=== PATIENT | male | born 1970 | race Caucasian/White ===

== ENCOUNTER → 2019-10-17 08:40 | Outpatient (BNVA) | payer BC, SELFPAY | PROVIDERS: Family Provider Nurse Practitioner Family; PCP Nurse Practitioner Family; Visit Provider Nurse Practitioner Psychiatric/Mental Health | DX: F33.2 Major depressive disorder, recurrent severe without psychotic features (principal); Z87.820 Personal history of traumatic brain injury; G47.33 Obstructive sleep apnea (adult) (pediatric); F90.0 Attention-deficit hyperactivity disorder, predominantly inattentive type | CPT/HCPCS: 99213 ==

== ENCOUNTER → 2020-01-10 07:35 | Outpatient (BNVA) | payer BC, SELFPAY | PROVIDERS: Family Provider Nurse Practitioner Family; PCP Nurse Practitioner Family; Visit Provider Nurse Practitioner Psychiatric/Mental Health | DX: F33.2 Major depressive disorder, recurrent severe without psychotic features (principal); F90.0 Attention-deficit hyperactivity disorder, predominantly inattentive type; Z87.820 Personal history of traumatic brain injury; G47.33 Obstructive sleep apnea (adult) (pediatric) | CPT/HCPCS: 99214 ==

== ENCOUNTER → 2020-01-23 14:07 | Outpatient (BNVA) | payer SELFPAY | PROVIDERS: Family Provider Nurse Practitioner Family; PCP Nurse Practitioner Family; Visit Provider Registered Nurse | DX: L02.91 Cutaneous abscess, unspecified (principal) | CPT/HCPCS: 87070; 87077; 87186 ==

== ENCOUNTER → 2020-01-31 07:36 | Outpatient (BNVA) | payer BC, SELFPAY | PROVIDERS: Family Provider Nurse Practitioner Family; PCP Nurse Practitioner Family; Visit Provider Nurse Practitioner Psychiatric/Mental Health | DX: F33.2 Major depressive disorder, recurrent severe without psychotic features (principal); F90.0 Attention-deficit hyperactivity disorder, predominantly inattentive type; Z87.820 Personal history of traumatic brain injury; G47.33 Obstructive sleep apnea (adult) (pediatric) | CPT/HCPCS: 99214 ==

== ENCOUNTER 2020-02-02 14:09 | Outpatient (CLI) | payer OTHER, SELFPAY | END 2020-02-02 14:10 | disposition home or self-care (01) | LOC: WOUND 02-05 13:32 | PROVIDERS: Family Provider Nurse Practitioner Family; PCP Nurse Practitioner Family; Visit Provider Surgery | DX: S81.841A Puncture wound with foreign body, right lower leg, initial encounter (principal); X58.XXXA Exposure to other specified factors, initial encounter | CPT/HCPCS: 10060; 11042; 88305; A6446; G0463; J2001 ==

== ENCOUNTER 2020-02-06 15:15 | Outpatient (CLI) | payer OTHER, SELFPAY | END 2020-02-06 15:16 | disposition home or self-care (01) | LOC: WOUND 15:16 | PROVIDERS: Family Provider Nurse Practitioner Family; PCP Nurse Practitioner Family; Visit Provider Thoracic Surgery (Cardiothoracic Vascular Surgery) | DX: S81.841A Puncture wound with foreign body, right lower leg, initial encounter (principal); X58.XXXA Exposure to other specified factors, initial encounter | CPT/HCPCS: 11042 ==

== ENCOUNTER 2020-02-06 16:34 | Outpatient (CLI) | payer OTHER, SELFPAY ==
--- NOTE | 2020-02-06 | XR_ITS ---
WS: [id number] XR ankle RT min 3V* [id number] REASON FOR EXAM: PAIN, REDNESS, NONHEALING ULCER FINDINGS: Soft tissue deformity is seen over the lateral aspects of the distal fibula soft tissue. There is no destructive changes of the tibia fibula. There is postop changes with a plate across the fibula and 2 screws through the tibia. There is an os tibialis present. XR/XR ankle RT min 3V* [id number] IMPRESSION: Soft tissue ulcerated appearing area along the lateral aspects of the distal fi bula. Internal fixation of tibia and fibula fracture satisfactory.
== END 2020-02-06 16:35 | disposition home or self-care (01) ==
PROVIDERS: Family Provider Nurse Practitioner Family; PCP Nurse Practitioner Family; Visit Provider Surgery
DX: M25.571 Pain in right ankle and joints of right foot (principal); L98.499 Non-pressure chronic ulcer of skin of other sites with unspecified severity
CPT/HCPCS: 73610

== ENCOUNTER 2020-02-09 13:31 | Outpatient (CLI) | payer OTHER, SELFPAY | END 2020-02-09 13:32 | disposition home or self-care (01) | LOC: WOUND 13:34 | PROVIDERS: Family Provider Nurse Practitioner Family; PCP Nurse Practitioner Family; Visit Provider Surgery | DX: S81.841A Puncture wound with foreign body, right lower leg, initial encounter (principal); X58.XXXA Exposure to other specified factors, initial encounter | CPT/HCPCS: 11042 ==

== ENCOUNTER 2020-02-16 13:53 | Outpatient (CLI) | payer OTHER, SELFPAY | END 2020-02-16 13:54 | disposition home or self-care (01) | LOC: WOUND 13:54 | PROVIDERS: Family Provider Nurse Practitioner Family; PCP Nurse Practitioner Family; Visit Provider Surgery | DX: S81.841A Puncture wound with foreign body, right lower leg, initial encounter (principal); X58.XXXA Exposure to other specified factors, initial encounter | CPT/HCPCS: 11043; 97605 ==

== ENCOUNTER 2020-02-20 15:33 | Outpatient (CLI) | payer OTHER, SELFPAY | END 2020-02-20 15:34 | disposition home or self-care (01) | LOC: WOUND 15:34 | PROVIDERS: Family Provider Nurse Practitioner Family; PCP Nurse Practitioner Family; Visit Provider Thoracic Surgery (Cardiothoracic Vascular Surgery) | DX: Z51.89 Encounter for other specified aftercare (principal) | CPT/HCPCS: 97605 ==

== ENCOUNTER 2020-02-23 08:02 | Outpatient (CLI) | payer OTHER, SELFPAY | END 2020-02-23 08:03 | disposition home or self-care (01) | LOC: WOUND 08:02 | PROVIDERS: Family Provider Nurse Practitioner Family; PCP Nurse Practitioner Family; Visit Provider Surgery | DX: S81.801A Unspecified open wound, right lower leg, initial encounter (principal); X58.XXXA Exposure to other specified factors, initial encounter | CPT/HCPCS: 11042 ==

== ENCOUNTER → 2020-03-05 07:58 | Outpatient (BNVA) | payer OTHER, SELFPAY | PROVIDERS: Family Provider Nurse Practitioner Family; PCP Nurse Practitioner Family; Visit Provider Nurse Practitioner Psychiatric/Mental Health | DX: F33.2 Major depressive disorder, recurrent severe without psychotic features (principal); F90.0 Attention-deficit hyperactivity disorder, predominantly inattentive type; G47.33 Obstructive sleep apnea (adult) (pediatric); Z87.820 Personal history of traumatic brain injury | CPT/HCPCS: 99214 ==

== ENCOUNTER 2020-03-08 08:19 | Outpatient (CLI) | payer OTHER, SELFPAY | END 2020-03-08 08:20 | disposition home or self-care (01) | LOC: WOUND 08:20 | PROVIDERS: Family Provider Nurse Practitioner Family; PCP Nurse Practitioner Family; Visit Provider Surgery | DX: S81.841A Puncture wound with foreign body, right lower leg, initial encounter (principal); X58.XXXA Exposure to other specified factors, initial encounter | CPT/HCPCS: 11042 ==

== ENCOUNTER 2020-03-11 15:38 | Outpatient (CLI) | payer OTHER, SELFPAY | END 2020-03-11 15:39 | disposition home or self-care (01) | LOC: WOUND 15:39 | PROVIDERS: Family Provider Nurse Practitioner Family; PCP Nurse Practitioner Family; Visit Provider Nurse Practitioner Family | DX: S81.841A Puncture wound with foreign body, right lower leg, initial encounter (principal); X58.XXXA Exposure to other specified factors, initial encounter | CPT/HCPCS: 11042 ==

== ENCOUNTER 2020-03-18 13:52 | Outpatient (CLI) | payer OTHER, SELFPAY | END 2020-03-18 13:53 | disposition home or self-care (01) | LOC: WOUND 13:58 | PROVIDERS: Family Provider Nurse Practitioner Family; PCP Nurse Practitioner Family; Visit Provider Nurse Practitioner Family | DX: S81.841A Puncture wound with foreign body, right lower leg, initial encounter (principal); X58.XXXA Exposure to other specified factors, initial encounter | CPT/HCPCS: 11042 ==

== ENCOUNTER 2020-03-25 13:24 | Outpatient (CLI) | payer OTHER, SELFPAY | END 2020-03-25 13:25 | disposition home or self-care (01) | LOC: WOUND 13:29 | PROVIDERS: Family Provider Nurse Practitioner Family; PCP Nurse Practitioner Family; Visit Provider Nurse Practitioner Family | DX: S81.841A Puncture wound with foreign body, right lower leg, initial encounter (principal); X58.XXXA Exposure to other specified factors, initial encounter | CPT/HCPCS: 11042 ==

== ENCOUNTER 2020-04-01 13:57 | Outpatient (CLI) | payer OTHER, SELFPAY | END 2020-04-01 13:58 | disposition home or self-care (01) | PROVIDERS: Family Provider Nurse Practitioner Family; PCP Nurse Practitioner Family; Visit Provider Nurse Practitioner Family | DX: S81.841A Puncture wound with foreign body, right lower leg, initial encounter (principal); X58.XXXA Exposure to other specified factors, initial encounter | CPT/HCPCS: 11042 ==

== ENCOUNTER 2020-04-22 09:48 | Outpatient (CLI) | payer OTHER, SELFPAY | END 2020-04-22 09:49 | disposition home or self-care (01) | LOC: WOUND 09:50 | PROVIDERS: Family Provider Nurse Practitioner Family; PCP Nurse Practitioner Family; Visit Provider Emergency Medicine | DX: S81.841A Puncture wound with foreign body, right lower leg, initial encounter (principal); X58.XXXA Exposure to other specified factors, initial encounter | CPT/HCPCS: 11042 ==

== ENCOUNTER 2020-04-29 10:13 | Outpatient (CLI) | payer OTHER, SELFPAY | END 2020-04-29 10:14 | disposition home or self-care (01) | LOC: WOUND 10:15 | PROVIDERS: Family Provider Nurse Practitioner Family; PCP Nurse Practitioner Family; Visit Provider Emergency Medicine | DX: L97.812 Non-pressure chronic ulcer of other part of right lower leg with fat layer exposed (principal) | CPT/HCPCS: 11042; 87070; 87077; 87176; 87186; 87205 ==

== ENCOUNTER 2020-05-13 08:08 | Outpatient (CLI) | payer OTHER, SELFPAY | END 2020-05-13 08:09 | disposition home or self-care (01) | LOC: WOUND 08:08 | PROVIDERS: Family Provider Nurse Practitioner Family; PCP Nurse Practitioner Family; Visit Provider Emergency Medicine | DX: L97.812 Non-pressure chronic ulcer of other part of right lower leg with fat layer exposed (principal) | CPT/HCPCS: 97597 ==

== ENCOUNTER 2020-05-20 08:09 | Outpatient (CLI) | payer OTHER, SELFPAY | END 2020-05-20 08:10 | disposition home or self-care (01) | LOC: WOUND 08:10 | PROVIDERS: Family Provider Nurse Practitioner Family; PCP Nurse Practitioner Family; Visit Provider Nurse Practitioner Family | DX: L97.812 Non-pressure chronic ulcer of other part of right lower leg with fat layer exposed (principal) | CPT/HCPCS: 11042; 87070; 87077; 87176; 87186; 87205 ==

== ENCOUNTER 2020-05-27 08:21 | Outpatient (CLI) | payer OTHER, SELFPAY | END 2020-05-27 08:22 | disposition home or self-care (01) | LOC: WOUND 08:21 | PROVIDERS: Family Provider Nurse Practitioner Family; PCP Nurse Practitioner Family; Visit Provider Nurse Practitioner Family | DX: L97.812 Non-pressure chronic ulcer of other part of right lower leg with fat layer exposed (principal) | CPT/HCPCS: 99212 ==

== ENCOUNTER 2020-06-03 13:58 | Outpatient (CLI) | payer OTHER, SELFPAY ==
--- NOTE | 2020-06-03 14:15 | USCV_ITS ---
JessicaSharad rogers Age: 49 Gender: M : 1970 Exam Date: 06/03/2020 14:13 Ordering Phys: Diann Myers Technologist: Jessica Rivera [place] [facility] [place]: HISTORY: pain swelling, non healing ulcer right calf PROCEDURES: Bilateral duplex Venous Insufficiency study of the Deep and Superficial systems was carried out according to normal protocol with the patient in supine positon for deep system and dependent position for the superficial system. FINDINGS: No DVT or superficial thrombus seen in right or left leg No reflux found in right or left leg Vessel diameters and depths noted above. CONCLUSIONS No evidence of DVT in the above-mentioned identifiable veins. No significant venous reflux bilaterally. Normal caliber veins bilaterally Dr Mark Jaramillo MD [facility] (Electronically Signed) Final Date: 03 June 2020 19:34 S
== END 2020-06-03 13:59 | disposition home or self-care (01) ==
PROVIDERS: PCP Registered Nurse; Visit Provider Nurse Practitioner Family
DX: M79.604 Pain in right leg (principal); M79.605 Pain in left leg; L53.9 Erythematous condition, unspecified; L97.219 Non-pressure chronic ulcer of right calf with unspecified severity
CPT/HCPCS: 93970

== ENCOUNTER 2020-06-05 15:10 | Outpatient (CLI) | payer OTHER, SELFPAY ==
--- NOTE | 2020-06-05 15:14 | USCV_ITS ---
Sharad Hubbard Age: 49 Gender: M : 1970 Exam Date: 06/05/2020 15:05 Ordering Phys: Diann Myers Technologist: Flores Carter [place] [facility] [place]: PAIN REDNESS NONHEALING ULCER RIGHT LEFT Brachial 163.00 mmHg Brachial 176.00 mmHg Pressure (mmHg) Waveform Pressure (mmHg) Waveform 169.00 Above Knee 172.00 188.00 Below Knee 183.00 196.00 BED LASTER 203.00 177.00 DPA 177.00 1.10 Ankle/Brachial Index 1.15 162.00 Pre-Exercise Toe Pressure 158.00 Pre-Exercise Toe/Brachial Index 0.90 0.92 FINDINGS Normal resting ABIs bilaterally Normal resting TBI's bilaterally PVR waveforms showing loss of dicrotic notch bilaterally CONCLUSIONS No significant arterial obstruction, based on the above findings Some features of arterial noncompliance Dr Mark Jaramillo MD [facility] (Electronically Signed) Final Date: 05 June 2020 23:32 S
== END 2020-06-05 15:11 | disposition home or self-care (01) ==
LOC: US 15:12
PROVIDERS: PCP Registered Nurse; Visit Provider Nurse Practitioner Family
DX: M79.604 Pain in right leg (principal); M79.605 Pain in left leg; L53.9 Erythematous condition, unspecified; L97.929 Non-pressure chronic ulcer of unspecified part of left lower leg with unspecified severity; L97.919 Non-pressure chronic ulcer of unspecified part of right lower leg with unspecified severity
CPT/HCPCS: 93923

== ENCOUNTER 2020-12-23 13:26 | Emergency (ER) | payer OTHER, SELFPAY ==
--- NOTE | 2020-12-23 13:38 | ECG_ITS ---
[facility] Test Date: 2020-12-23 Pat Name: Sharad Hubbard Department: Room: Gender: Male Cardiology Technician: : 1970 Requested By: Yaneli Neri Order Number: [id number] Aline MD: Ailyn Churchill M.D. Measurements Intervals [place] Rate: 67 P: 55 DE: 203 QRS: 56 QRSD: 100 T: 14 QT: 383 QTc: 406 Interpretive Statements SINUS RHYTHM NONSPECIFIC T-WAVE ABNORMALITY Compared to ECG 12/23/2020 15:32:51 Intraventricular conduction delay no longer present Possible ischemia no longer present T-wave abnormality still present Electronically Signed On 12-23-2020 19:12:45 CDT by Ailyn Churchill M.D. [id number] f
--- NOTE | 2020-12-23 13:38 | XR_ITS ---
WS: [id number] Exam: XR chest 1V portable [id number] Date/Time of Exam: 12/23/2020 1:40 PM Reason For Exam: chest pain Comparison 08/10/2017. The lungs are clear and fully inflated. No pleural effusions. Normal cardiomediastinal structures for technique. Regional bony elements are intact. XR/XR chest 1V portable [id number] IMPRESSION: 1. No acute cardiopulmonary finding. No change.
[2020-12-23 14:01] VITALS: BP 171/107; PULSE 78; RESP 14; TEMP 37; O2SAT 98; BMI 51.9
[2020-12-23 14:34] LABS: Basophils % 0.3 %; Eosinophils # 0.1 10^3/uL (0.0-0.8); Eosinophils % 0.9 %; Hematocrit 45.9 % (42.0-52.0); Hemoglobin 15.3 g/dL (11.7-16.6); Lymphocytes # 1.9 10^3/uL (0.8-4.8); Lymphocytes % 21.5 %; Mean Corpuscular HGB Conc 33.3 g/dL (30.0-36.0); Mean Corpuscular Hemoglobin 29.8 pg (28.0-34.0); Mean Corpuscular Volume 89.3 fL (80-94); Mean Platelet Volume 10.1 fL (7.4-10.4); Monocytes % 11.5 %; Neutrophils # 5.67 10^3/uL (1.8-7.7); Neutrophils % 65.6 %; Nucleated Red Blood Cells % 0 %; Platelet Count 223 10^3/cmm (130-400); Red Blood Count 5.14 10^6/uL (4.1-5.3); Red Cell Distribution Width 12.8 % (12.1-15.1); White Blood Count 8.7 10^3/uL (4.0-10.0)
[2020-12-23 14:39] VITALS: PULSE 73; RESP 16; O2SAT 98
--- NOTE | 2020-12-23 14:41 | ED_ITS ---
HPI - Chest Pain General: Chief Complaint: Chest Pain Stated Complaint: CHEST PAINS Time Seen by Provider: 12/23/20 14:12 History of Present Illness: HPI narrative: 50-year-old male presents emergency room with complaint of chest discomfort. Had this for the last 2 days. He has had it intermittently for several years he states he has had stress test before in the past including one recently here. Looks to the old records in August 2016 he had a sestamibi stress test that was normal he also had a inadvertently discovered nodule in the chest that was worked up by Dr. Almaguer and he tells me you follow-up to review negative. Patient is not diabetic he has no known heart disease he does is a history of hypertension. MD complaint: chest pain Onset (ago): day(s) (2) Timing of current episode: episodic Prior episodes: Yes Onset: during rest and during exertion Pain location: substernal and left chest Pain radiation: none Severity: moderate Quality: heaviness Relieving factors: nothing Exacerbating factors: nothing Associated symptoms: Deny abdominal pain, diaphoresis, dyspnea, fever(s), leg edema, nausea, palpitations, sense of impending doom, syncope or vomiting Treatment prior to arrival: none Review of Systems Const: Denies: fever(s) or diaphoresis ENMT: Denies: throat pain, ear or mastoid pain, nasal discharge or nasal congestion Card: Denies: palpitations or syncope Resp: Denies: dyspnea GI: Denies: abdominal pain, nausea or vomiting : Denies: flank pain, dysuria, urinary frequency or urinary urgency Skin/Breast: Denies: rash or pruritus PFSH ED PFSH: Medical History ADHD (attention deficit hyperactivity disorder), inattentive type COVID-19 H/O concussion Traumatic brain injury Major depressive disorder, recurrent severe without psychotic features Obstructive sleep apnea Social History Smoking and tobacco status: former smoker Alcohol intake: never Adopted: No Caregiver/support person: No Lives independently: No Household members: spouse and children Current occupational status: employed Sexually active: Yes Current gender identity: Male Physical Exam Const: COMMON NORMALS: no acute distress GENERAL APPEARANCE: cooperative and comfortable ORIENTATION/CONSCIOUSNESS: Yes awake, Yes oriented to person, Yes oriented to place and Yes oriented to time HENMT: COMMON NORMALS: normocephalic, atraumatic and hearing grossly normal bilaterally HEAD & SCALP: normocephalic and atraumatic Neck/C-Spine: COMMON NORMALS: no JVD Resp: COMMON NORMALS: normal respiratory effort, No retractions, No use of accessory muscles and clear to auscultation bilaterally AUSCULTATION: clear to auscultation bilaterally Cardio: COMMON NORMALS: no JVD, regular rate, regular rhythm and No murmurs present (Cardio) RATE: regular rate RHYTHM: regular rhythm GI: COMMON NORMALS: Soft to palpation and No hepatosplenomegaly present AUSCULTATION: Yes normoactive bowel sounds PALPATION: Yes Soft to palpation, No Tenderness to palpation present (GI), No Guarding due to palpation present (GI) and Yes No hepatosplenomegaly present Extremity: COMMON NORMALS: normal to inspection, capillary refill normal, no clubbing, cyanosis or edema, no calf tenderness and no pedal edema Neuro: SENSORIUM/ORIENTATION: Yes oriented to person, Yes oriented to place and Yes oriented to time Skin: COMMON NORMALS: no rashes or lesions noted GENERAL SKIN EXAM: no rashes or lesions noted Course Vital Signs: Vital signs: Vital Signs Temperature 98.6 F 12/23/20 14:01 Pulse Rate 76 12/23/20 17:18 Respiratory Rate 18 12/23/20 17:18 Blood Pressure 141/81 12/23/20 17:18 Pulse Oximetry 97 12/23/20 17:18 MDM - Chest Pain MDM Narrative: Medical decision making narrative: Enzymes negative discharge home set up outpatient stress test started on aspirin daily also started metoprolol continue propranolol Lab Data: Labs: Lab Results 12/23/20 12/23/20 12/23/20 Range/Units 14:22 14:22 14:22 WBC 8.7 (4.0-10.0) 10^3/ uL RBC 5.14 (4.1-5.3) 10^6/u L Hgb 15.3 (11.7-16.6) g/dL Hct 45.9 (42.0-52.0) % MCV 89.3 (80-94) fL MCH 29.8 (28.0-34.0) pg MCHC 33.3 (30.0-36.0) g/dL RDW 12.8 (12.1-15.1) % Plt Count 223 (130-400) 10^3/c mm MPV 10.1 (7.4-10.4) fL Neut % (Auto) 65.6 % Lymph % (Auto) 21.5 % [place] % (Auto) 11.5 % Eos % (Auto) 0.9 % Baso % (Auto) 0.3 % Neut # (Auto) 5.67 (1.8-7.7) 10^3/u L Lymph # (Auto) 1.9 (0.8-4.8) 10^3/u L [place] # (Auto) 1.0 H (0.2-0.9) 10^3/u L Eos # (Auto) 0.1 (0.0-0.8) 10^3/u L Baso # (Auto) 0.0 (0.0-0.1) 10^3/u L Nucleated RBC % (a uto) 0 % Nucleated RBCs # 0.0 /100WBC Sodium 136 (136-145) mmol/L Potassium 4.3 (3.5-5.1) mmol/L Chloride 100 (98-107) mmol/L Carbon Dioxide 24 (22-29) mmol/L Anion Gap 16.3 (5-19) BUN 16 (6-20) mg/dL Creatinine 0.7 (0.7-1.2) mg/dL GFR Calculation 118.9 (90-130) mL/min Glucose 92 (65-115) mg/dL Calculated Osmolal ity Not Reportable Calcium 9.1 (8.5-10.5) mg/dL Total Bilirubin 0.3 (0.15-1.2) mg/dL AST 18 (0-40) U/L ALT 19 (0-41) U/L Alkaline Phosphata se 87 (40-130) IU/L Troponin T Baselin e 6 (0-15) ng/L Troponin T 120 Min scott (0-15) ng/L Delta Troponin T (0-10) ABS# Total Protein 7.3 (6.6-8.7) g/dL Albumin 4.0 (3.5-5.2) g/dL Globulin 3.3 (1.3-4.6) g/dL 12/23/20 Range/Units 16:28 WBC (4.0-10.0) 10^3/ uL RBC (4.1-5.3) 10^6/u L Hgb (11.7-16.6) g/dL Hct (42.0-52.0) % MCV (80-94) fL MCH (28.0-34.0) pg MCHC (30.0-36.0) g/dL RDW (12.1-15.1) % Plt Count (130-400) 10^3/c mm MPV (7.4-10.4) fL Neut % (Auto) % Lymph % (Auto) % [place] % (Auto) % Eos % (Auto) % Baso % (Auto) % Neut # (Auto) (1.8-7.7) 10^3/u L Lymph # (Auto) (0.8-4.8) 10^3/u L [place] # (Auto) (0.2-0.9) 10^3/u L Eos # (Auto) (0.0-0.8) 10^3/u L Baso # (Auto) (0.0-0.1) 10^3/u L Nucleated RBC % (a uto) % Nucleated RBCs # /100WBC Sodium (136-145) mmol/L Potassium (3.5-5.1) mmol/L Chloride (98-107) mmol/L Carbon Dioxide (22-29) mmol/L Anion Gap (5-19) BUN (6-20) mg/dL Creatinine (0.7-1.2) mg/dL GFR Calculation (90-130) mL/min Glucose (65-115) mg/dL Calculated Osmolal ity Calcium (8.5-10.5) mg/dL Total Bilirubin (0.15-1.2) mg/dL AST (0-40) U/L ALT (0-41) U/L Alkaline Phosphata se (40-130) IU/L Troponin T Baselin e (0-15) ng/L Troponin T 120 Min scott 6.84 (0-15) ng/L Delta Troponin T 0.84 (0-10) ABS# Total Protein (6.6-8.7) g/dL Albumin (3.5-5.2) g/dL Globulin (1.3-4.6) g/dL Discharge Plan Discharge Patient Disposition: Home Clinical Impression: Atypical chest pain, Gastroesophageal reflux disease Condition: Stable Prescriptions: New aspirin 81 mg tablet,delayed release (DR/EC) 81 mg PO DAILY Qty: 30 RF: 0 pantoprazole 40 mg tablet,delayed release (DR/EC) 40 mg PO QAM 56 Days Qty: 56 RF: 0 No Action propranolol 20 mg tablet 20 mg PO BID RF: 0 Discharge Orders: Discharge ED (Routine); Ordered 12/23/20 Ordered By: Addi Villafana Referrals: Danilo Mead, INTERNATIONAL BANK MANAGER [Primary Care Provider] - Discharge Diet: As Directed Discharge Activity: Resume usual activity Patient Instructions: Opioid Safety Activity Restrictions/Additional Instructions: Case management will call to arrange for a Lexiscan sestamibi stress test. Coding Level of Care Code ED Truck Spotter for Erick Coe
[2020-12-23] MEDS: amlodipine 5 mg Tablet PO (14:49)
--- NOTE | 2020-12-23 14:55 | PC.NURSE ---
patient family stated that lisinopril cause pt chronic cough, MD notified.
[2020-12-23 14:59] LABS: Alanine Aminotransferase 19 U/L (0-41); Alkaline Phosphatase 87 IU/L (40-130); Aspartate Amino Transferase 18 U/L (0-40); Blood Urea Nitrogen 16 mg/dL (6-20); Calcium 9.1 mg/dL (8.5-10.5); Carbon Dioxide 24 mmol/L (22-29); Chloride 100 mmol/L (98-107); Globulin 3.3 g/dL (1.3-4.6); Glomerular Filtration Rate 118.9 mL/min (90-130); Glucose 92 mg/dL (65-115); Sodium 136 mmol/L (136-145); Total Bilirubin 0.3 mg/dL (0.15-1.2); Total Protein 7.3 g/dL (6.6-8.7)
[2020-12-23 15:00] LABS: Anion Gap 16.3 (5-19); Potassium 4.3 mmol/L (3.5-5.1); Troponin(5th) Baseline 6 ng/L (0-15)
[2020-12-23] MEDS: losartan 50 mg Tablet 100 MG PO (15:30)
--- NOTE | 2020-12-23 15:31 | PC.NURSE ---
patient stated chest pain comes and goes, c/o chest pain 5/10, no acute distress noted at this time.
--- NOTE | 2020-12-23 15:38 | ECG_ITS ---
[facility] Test Date: 2020-12-23 Pat Name: Sharad Hubbard Department: Room: Gender: Male Certification Officer: : 1970 Requested By: Yaneli Neri Order Number: [id number] Aline MD: Ailyn Churchill M.D. Measurements Intervals [place] Rate: 69 P: 54 PA: 201 QRS: 56 QRSD: 109 T: -11 QT: 393 QTc: 423 Interpretive Statements SINUS RHYTHM MODERATE INTRAVENTRICULAR CONDUCTION DELAY [105+ ms QRS DURATION, 80+ ms Q/S IN V1/V2, NO Q AND 60+ ms R IN I/aVL/V5/V6] MODERATE T-WAVE ABNORMALITY, CONSIDER ANTERIOR ISCHEMIA [-0.1+ mV T WAVE IN V3/V4] Compared to ECG 08/10/2017 20:00:20 Intraventricular conduction delay now present T-wave abnormality now present Possible ischemia now present Sinus bradycardia no longer present First degree AV block no longer present Electronically Signed On 12-23-2020 19:17:19 CDT by Ailyn Churchill M.D. [id number]
[2020-12-23 16:40] VITALS: BP 140/102; PULSE 78; RESP 18; O2SAT 98
[2020-12-23 17:15] LABS: Troponin 5 2HR 6.84 ng/L (0-15); Troponin 5 2HR Delta 0.84 ABS# (0-10)
[2020-12-23 17:18] VITALS: BP 141/81; PULSE 76; RESP 18; O2SAT 97
[2020-12-23] MEDS: lidocaine 2% viscous 15 ML, aluminum-mag hydrox-simethicon 30 ML, sucralfate oral liq 1 GM PO (17:41)
--- NOTE | 2020-12-24 11:01 | DCPLANNER ---
manager business had message to schedule an outpatient stress test for patient. manager business faxed signed order to centralized scheduling, will call for appointment information.
--- NOTE | 2021-01-03 13:29 | DCPLANNER ---
manager molecular was contacted by centralize scheduling, and the insurance company is requiring a peer to peer for the stress test, this is not done in the ER. manager molecular called patient, unable to speak with patient at this time, a voicemail was left for patient. manager molecular left a voicemail for patient stating that the stress test could not be ordered from the ER, that a peer to peer was required and that is not done in the ER. manager molecular explained that this is getting more common with insurances and tests out of the ER. Patient will need to see his primary care physician and if they feel patient needs the testing than the primary care physician can order if for patient.
== END 2020-12-23 17:59 | disposition home or self-care (01) ==
PROVIDERS: Physician Assistant; Emergency Provider Family Medicine; PCP Registered Nurse
DX: R07.89 Other chest pain (principal); K21.9 Gastro-esophageal reflux disease without esophagitis; Z87.891 Personal history of nicotine dependence
CPT/HCPCS: 71045; 80053; 84484; 85025; 93005; 99284

== ENCOUNTER → 2021-01-07 08:02 | Outpatient (BNVA) | payer OTHER, SELFPAY | PROVIDERS: PCP Registered Nurse; Visit Provider Nurse Practitioner Psychiatric/Mental Health | DX: F33.2 Major depressive disorder, recurrent severe without psychotic features (principal); F90.0 Attention-deficit hyperactivity disorder, predominantly inattentive type; Z87.820 Personal history of traumatic brain injury; G47.33 Obstructive sleep apnea (adult) (pediatric) | CPT/HCPCS: 99214 ==

== ENCOUNTER → 2021-02-05 08:20 | Outpatient (BNVA) | payer OTHER, SELFPAY | PROVIDERS: PCP Registered Nurse; Visit Provider Nurse Practitioner Psychiatric/Mental Health | DX: F33.2 Major depressive disorder, recurrent severe without psychotic features (principal); Z87.820 Personal history of traumatic brain injury; G47.33 Obstructive sleep apnea (adult) (pediatric); F90.0 Attention-deficit hyperactivity disorder, predominantly inattentive type | CPT/HCPCS: 99214 ==

== ENCOUNTER → 2021-04-08 09:34 | Outpatient (BNVA) | payer OTHER, SELFPAY | PROVIDERS: PCP Registered Nurse; Visit Provider Registered Nurse | DX: Z12.5 Encounter for screening for malignant neoplasm of prostate (principal); I10 Essential (primary) hypertension; E78.5 Hyperlipidemia, unspecified | CPT/HCPCS: 80053; 80061; 85025; G0103 ==

== ENCOUNTER 2021-07-28 09:18 | Outpatient (CLI) | payer OTHER, SELFPAY ==
--- NOTE | 2021-07-28 09:27 | XR_ITS ---
WS: [id number] Exam: XR shoulder RT min 2V* [id number] Date/Time of Exam: 07/28/2021 9:27 AM Reason For Exam: [id number] - Pain in right shoulder No fracture or dislocation noted. Mild spurring along the inferior margin of the distal clavicle. Nor mal soft tissues. XR/XR shoulder RT min 2V* [id number] IMPRESSION: 1. No fracture or dislocation. 2. Small bone spur seen along the inferior margin of the distal clavicle.
[2021-07-31 14:43] LABS: Vit D 1,25 (Oh)2, Total 44 pg/mL (18-72); Vit D2 1,25 (Oh)2 <8 pg/mL; Vit D3 1,25 (Oh)2 44 pg/mL
[2021-08-01 18:27] LABS: TSH Receptor Binding Antibody 1.16 IU/L (< OR = 2.00)
== END 2021-07-28 09:19 | disposition home or self-care (01) ==
LOC: RAD 09:23
PROVIDERS: PCP Registered Nurse; Visit Provider Registered Nurse
DX: M25.511 Pain in right shoulder (principal); I10 Essential (primary) hypertension; R41.3 Other amnesia; M77.8 Other enthesopathies, not elsewhere classified
CPT/HCPCS: 36415; 73030; 82652; 83516

== ENCOUNTER 2021-09-22 07:18 | Outpatient (RCR) | payer OTHER, SELFPAY | END 2021-10-03 23:59 | disposition home or self-care (01) | LOC: SPT 07:18 | PROVIDERS: PCP Registered Nurse; Referring Provider Registered Nurse; Visit Provider Registered Nurse | DX: M75.41 Impingement syndrome of right shoulder (principal) | CPT/HCPCS: 97110; 97161 ==

== ENCOUNTER 2021-10-04 06:00 | Outpatient (RCR) | payer OTHER, SELFPAY | END 2021-11-03 23:59 | disposition home or self-care (01) | LOC: SPT 06:00 | PROVIDERS: PCP Registered Nurse; Visit Provider Registered Nurse | DX: M75.41 Impingement syndrome of right shoulder (principal) | CPT/HCPCS: 97110 ==

== ENCOUNTER 2021-11-04 06:00 | Outpatient (RCR) | payer OTHER, SELFPAY | END 2021-12-01 23:59 | disposition home or self-care (01) | LOC: SPT 06:00 | PROVIDERS: PCP Registered Nurse; Visit Provider Registered Nurse | DX: M75.41 Impingement syndrome of right shoulder (principal) | CPT/HCPCS: 97110 ==

== ENCOUNTER 2021-11-12 07:09 | Day surgery (SDC) | payer OTHER, SELFPAY ==
[2021-11-08 17:07] LABS: Quest SARS-CoV-2 RNA NOT DETECTED (NOT DETECTED)
[2021-11-10 09:43] VITALS: BMI 51.5
--- NOTE | 2021-11-12 07:31 | P.ANESASSM_ITS ---
Pre-Anesthetic Assessment Height/Weight: Height 1.83 m Weight 172.365 kg Preop Diagnosis: diagnostic Operation Date: 11/12/21 08:30 Proposed Procedures p Colonoscopy 72320 Z12.11(Not Applicable) - Buck Warren MD Familial anesthetic complications: None, he has h/o difficult intubation Was Beta Fauzia taken within 24 hours: N/A Was Clonidine taken within 24 hours: N/A Social No alcohol and No tobacco Exam alert, oriented x 3, clear to auscultation bilaterally and regular rate & rhythm Airway Submandibular: within normal limits Cervical ROM: within normal limits Mallampati: Class IV Dentition: full Pulmonary Sleep Apnea CV/HEM Hypertension Metabolic Morbid Obesity Neuropsych Anxiety and Depression Anesthetic Plan ASA status: 3 Anesthesia: MAC Risk of > 500 ml blood loss (7ml/kg in children): No Medications/Allergies Home Medications Medication Instructions Recorded Confirmed Last Taken Type olanzapine 5 mg disintegrating 5 mg PO DAILY PRN #30 tab 02/05/21 11/10/21 Unknown Rx tablet (Zyprexa Zydis) lisinopril 10 mg tablet 10 mg PO DAILY #30 tab 09/16/21 11/10/21 Unknown Rx Allergies Allergy/AdvReac Type Severity Reaction Status Date / Time No Known Allergies Allergy Verified 11/10/21 09:41 [facility], [facility] Anesthesia Medical History ADHD (attention deficit hyperactivity disorder), inattentive type COVID-19 H/O concussion Traumatic brain injury Major depressive disorder, recurrent severe without psychotic features Obstructive sleep apnea Social History Alcohol intake: never Adopted: No Caregiver/support person: No Lives independently: No Household members: spouse and children Current occupational status: employed Sexually active: Yes Current gender identity: Male Data Anesthesia Cardiac Studies: No Data to Display
[2021-11-12 07:38] VITALS: BP 147/93; PULSE 87; RESP 18; TEMP 36.5; O2SAT 95
[2021-11-12] MEDS: sodium chloride 0.9% 1,000 ML 30 ML IV (07:54)
--- NOTE | 2021-11-12 08:35 | W.PM.OPSFHP ---
Same Day Surgery H&P Indication for Procedure/HPI DATE OF PROCEDURE: November 12, 2021 CHIEF COMPLAINT/INDICATIONFOR SURGICAL PROCEDURE: screening PREOP DIAGNOSIS: diagnostic PLANNED PROCEDURE: Operation Date: 11/12/21 08:30 Proposed Procedures p Colonoscopy 78708 Z12.11(Not Applicable) - Buck Warren MD Medications/Allergies* Home Medications Medication Instructions Recorded Confirmed Type fluoxetine 20 mg capsule 20 mg PO DAILY 11/12/21 11/12/21 History propranolol 10 mg tablet 10 mg PO DAILY 11/12/21 11/12/21 History Allergies/Adverse Reactions Allergy/AdvReac Type Severity Reaction Status Date / Time No Known Allergies Allergy Verified 11/12/21 07:45 Current Medications: Generic Name Dose Route Start Last Admin Trade Name Freq PRN Reason Stop Dose Admin Sodium Chloride 1,000 mls @ 30 mls/hr 11/12/21 07:30 11/12/21 07:54 Sodium Chloride 0.9% IV 11/13/21 07:29 30 mls/hr .Q24H MELI Administration Pertinent History/Comorbid Conditions* Medical History (Updated 11/12/21 @ 07:33 by Heriberto Douglas) ADHD (attention deficit hyperactivity disorder), inattentive type COVID-19 Difficult airway for intubation H/O concussion Traumatic brain injury Major depressive disorder, recurrent severe without psychotic features Obstructive sleep apnea Social History Alcohol intake: never Adopted: No Caregiver/support person: No Lives independently: No Household members: spouse and children Current occupational status: employed Sexually active: Yes Current gender identity: Male Pertinent Exam Findings alert, oriented x 3 and regular rate & rhythm Recommendations Surgery/Procedure today Coding Level of Care Code Acute Buildings And Grounds Coordinator for Erick Coe
[2021-11-12 08:58] VITALS: BP 164/92; PULSE 78; RESP 16; TEMP 36.1; O2SAT 95
--- NOTE | 2021-11-12 08:59 | ANE.PACU2 ---
Inpatient post-anesthesia follow up: Airway intact: Yes Vital signs: Temperature 97.7 F Pulse Rate 87 Respiratory Rate 18 Blood Pressure 147/93 Pulse Oximetry 95 Oxygen Delivery Me thod Room Air Oxygen Flow Rate Fraction of Inspir ed Oxygen Hydration adequate: Yes Nausea and vomiting: No Pain level: 1 Mental status: Baseline
[2021-11-12 09:11] VITALS: BP 103/72; PULSE 78; RESP 18; O2SAT 94
== END 2021-11-12 09:26 | disposition home or self-care (01) ==
PROVIDERS: PCP Registered Nurse; Visit Provider Surgery
PROC: 0DJD8ZZ Inspection of Lower Intestinal Tract, Via Natural or Artificial Opening Endoscopic (ICD-10-PCS; CPT 45378; principal; 2021-11-12 08:30)
DX: Z12.11 Encounter for screening for malignant neoplasm of colon (principal); I10 Essential (primary) hypertension; E66.01 Morbid (severe) obesity due to excess calories; Z68.43 Body mass index [BMI] 50.0-59.9, adult; F41.9 Anxiety disorder, unspecified; F32.9 Major depressive disorder, single episode, unspecified; Z86.16 Personal history of COVID-19; G47.33 Obstructive sleep apnea (adult) (pediatric)
CPT/HCPCS: 45378; 87635; J2704; J7030

== ENCOUNTER → 2022-06-01 10:23 | Outpatient (BNVA) | payer OTHER, SELFPAY | PROVIDERS: PCP Registered Nurse; Visit Provider Registered Nurse | DX: I10 Essential (primary) hypertension (principal); E78.5 Hyperlipidemia, unspecified; G47.33 Obstructive sleep apnea (adult) (pediatric); R07.9 Chest pain, unspecified; E66.01 Morbid (severe) obesity due to excess calories; Z68.43 Body mass index [BMI] 50.0-59.9, adult; Z91.14 Patient's other noncompliance with medication regimen | CPT/HCPCS: 80053; 80061; 85025 ==

== ENCOUNTER → 2022-08-07 08:15 | Outpatient (BNVA) | payer OTHER, SELFPAY | PROVIDERS: PCP Registered Nurse; Visit Provider Podiatrist Foot & Ankle Surgery | DX: M76.62 Achilles tendinitis, left leg (principal); M92.62 Juvenile osteochondrosis of tarsus, left ankle; M24.572 Contracture, left ankle | CPT/HCPCS: 73630 ==

== ENCOUNTER 2022-08-07 08:53 | Outpatient (CLI) | payer OTHER, SELFPAY | END 2022-08-07 08:54 | disposition home or self-care (01) | LOC: SPT 08:54 | PROVIDERS: PCP Registered Nurse; Visit Provider Podiatrist Foot & Ankle Surgery | DX: Z46.89 Encounter for fitting and adjustment of other specified devices (principal); M79.672 Pain in left foot | CPT/HCPCS: 97760; L4397 ==

== ENCOUNTER 2022-10-06 09:33 | Outpatient (CLI) | payer OTHER, SELFPAY ==
[2022-10-06 09:48] VITALS: BMI 52.2
--- NOTE | 2022-10-06 09:49 | ECG_ITS ---
[facility] Test Date: 2022-10-06 Pat Name: Sharad Hubbard Department: Room: Gender: Male Stucco Laborer: Norma Wheat : 1970 Requested By: Ailyn Churchill Order Number: [id number] Aline MD: Ailyn Churchill M.D. Interpretive Statements NAME OF STUDY: LEXISCAN SESTAMIBI STRESS TEST INDICATION: Chest Pain PROCEDURE: At the baseline, the blood pressure was 154/98 mm Hg with a heart rate of 72 bpm. The electrocardiogram showed sinus rhythm, normal axis and LBBB. ??? The Lexiscan was infused over a period of 20 seconds. A total of 0.4 milligrams of Lexiscan was infused. The stress phase was continued for a total of 5 minutes. Heart rate at the end of the stress phase was 83 bpm with a blood pressure of 142/97 mm Hg. The EKG at the peak infusion revealed so significant ST-T wave changes. ??? Sestamibi was injected 20 seconds after the Lexiscan infusion. ??? Blood pressure at the end of the recovery phase was 136/95 mm Hg with a heart rate of 80 beats per minute. ??? CONCLUSION: 1. Non diagnostic EKG changes with the LexiScan infusion due to baseline LBBB. 2. No LexiScan induced chest pain or cardiac arrhythmia. 3. Normal blood pressure and heart rate response. 4. Sestamibi/sestamibi perfusion scan pending; see separate report. Electronically Signed On 10-08-2022 6:26:28 [employer] by Ailyn Churchill M.D. [id number]
--- NOTE | 2022-10-06 09:49 | NMCV_ITS ---
NM nam perf SPECT r/s* [id number] Sharad Hubbard Age: 52 Gender: M : 1970 Exam Date: 10/06/2022 10:57 Ordering Phys: Ailyn Churchill MD [email or web address]) Technologist: HUNG Hopkins Exam Location: [facility] Indications: CHEST PAIN STRESS TEST Please see separate stress test report in [facility] for full findings IMAGE PROTOCOL Rest/Stress 1 Lexiscan Day Radiopharmaceutical Dose (mCi) Administration Site Administered by Rest: Tc-99m 10.5 IV HUNG Serrano Sestamibi Stress:Tc-99m 33.0 IV HUNG Serrano Sestamibi Rest: 06-Oct-2022 60 Discovery 630 Stress: 06-Oct-2022 30 Discovery 630 0.4mg Lexiscan. Images obtained in supine and prone position. SPECT RESULTS Technical Quality: Excellent Raw Data Analysis: Normal Image Corrections: No attenuation or motion correction applied Summed Stress Score: 3 Summed Rest Score: 12 Summed Difference Score: 0 PERFUSION FINDINGS Patchy area of decreased tracer uptake in inferior and septal nguyen with improved tracer uptake in stress images. This is suggestive of attenuation artifact. FUNCTIONAL RESULTS (calculated via Gated SPECT) Stress Image LV EF (%): 50 Stress EDV (mL):222 TID: 1.01 Stress ESV (mL):111 FUNCTIONAL FINDINGS: The left ventricle is normal in size. Transient Ischemia Dilatation of 1. The left ventricular ejection fraction is mildly reduced with a value of 50%. Possible mild hypokinesis of inferior wall. Markedly increased end diastolic and end systolic volumes. IMPRESSIONS 1. Small perfusion abnormality of mid to apical inferior may represent attenuation artifact or old myocardial infarction. Attenuation artifact noted on septal nguyen. 2. The left ventricular ejection fraction is mildly reduced with a value of 50%. 3. Possible mild hypokinesis of inferior wall. 4. EKG portion of the study will be reported separately. 5. No coronary ischemia based on this study. Ailyn Churchill MD (Electronically Signed) Final Date: 07 October 2022 10:41 S
--- NOTE | 2022-10-06 10:00 | USCV_ITS ---
Sharad Hubbard Age: 52 Gender: M : 1970 Exam Date: 10/06/2022 10:27 Ordering Phys: Ailyn Churchill MD ([email or web address]) Technologist: Elan Cortez Exam Location[place] [facility] [place] Indication: CHEST PAIN BP: 112 / 75 HR: 78 Rhythm: Sinus Technical Quality: Adequate MEASUREMENTS (Male / Female) Normal Values 2D ECHO LV Diastolic Diameter PLAX 5.3 cm 4.2 - 5.9 / 3.9 - 5.3 cm LV Systolic Diameter PLAX 2.9 cm IVS Diastolic Thickness 1.3 cm 0.6 - 1.0 / 0.6 - 0.9 cm IVS Systolic Thickness 1.8 cm LVPW Diastolic Thickness 1.3 cm 0.6 - 1.0 / 0.6 - 0.9 cm LVPW Systolic Thickness 1.7 cm LVOT Diameter 2.4 cm LV Ejection Fraction 2D Teich 76.2 % LV Ejection Fraction MOD 2C 50.0 % LV Ejection Fraction 2C AL 49.6 % LA Diameter 4.3 cm M-MODE Aortic Annulus Diameter 3.4 cm LA Ao Ratio MM 1.4 DOPPLER AV Peak Velocity 115.0 cm/s LVOT Peak Velocity 67.0 cm/s AV Area Cont Eq vti 2.7 cm squared AV Area Cont Eq pk 2.6 cm squared MV Area PHT 5.0 cm squared Mitral E to A Ratio 1.2 MV E' Velocity 45.5 cm/s Mitral E to MV E' Ratio 16.8 Mitral E to LV E' Lateral Ratio 16.5 Mitral E to LV E' Septal Ratio 17.2 TR Peak Velocity 147.7 cm/s TR Peak Gradient 8.7 mmHg TV Peak E Velocity 74.0 cm/s Right Atrial Pressure 3.0 mmHg Pulmonary Artery Systolic Pressu 11.7 mmHg FINDINGS Left Ventricle Normal left ventricular cavity size and increased left ventricular wall thickeness. Normal left ventricular systolic function. Left ventricular ejection fraction is estimated at 55- 60 %. Abnormal septal motion. Grade II diastolic dysfunction, moderately elevated filling pressures. Right Ventricle Right ventricle not well visualized. Probably normal right ventricular size and systolic function. Right Atrium Right atrium not well visualized. Left Atrium Mildly increased left atrial size. Mitral Valve Thickened mitral valve. No mitral valve stenosis. Aortic Valve Aortic valve not well visualized. No aortic valve stenosis. Tricuspid Valve Tricuspid valve not well visualized. Pulmonic Valve Pulmonic valve not well visualized. Pericardium No pericardial effusion. Aorta Normal size aortic root and proximal ascending aorta. IVC Inferior vena cava not visualized. CONCLUSIONS 1. This is a technically difficult study. Optison was used per protocol. 2. Normal left ventricular cavity size and increased left ventricular wall thickeness. Normal left ventricular systolic function. Left ventricular ejection fraction is estimated at 55- 60 %. Grade II diastolic dysfunction, moderately elevated filling pressures. 3. Probably normal right ventricular size and systolic function. 4. No prior similar studies to compare. Ailyn Churchill MD (Electronically Signed) Final Date: 07 October 2022 12:28 S
[2022-10-06] MEDS: perflutren protein-a microsphr 0.22 mg/mL SDV 3 mL IV (10:58)
[2022-10-06] MEDS: regadenoson 0.4 Mg/5 ml Syringe IVP (11:30)
[2022-10-06 11:48] VITALS: BP 136/95; PULSE 82
== END 2022-10-06 09:34 | disposition home or self-care (01) ==
PROVIDERS: PCP Registered Nurse; Visit Provider Internal Medicine Cardiovascular Disease
DX: R07.9 Chest pain, unspecified (principal); R94.39 Abnormal result of other cardiovascular function study
CPT/HCPCS: 36415; 78452; 93017; 96374; A9500; C8929; J2785; Q9956

== ENCOUNTER → 2022-10-14 12:01 | Outpatient (BNVA) | payer OTHER, SELFPAY | PROVIDERS: PCP Registered Nurse; Visit Provider Specialist | DX: R20.0 Anesthesia of skin (principal); R20.2 Paresthesia of skin | CPT/HCPCS: 36415; 82607; 82746; 83036; 84443 ==

== ENCOUNTER 2022-12-01 11:35 | Outpatient (CLI) | payer OTHER, SELFPAY ==
--- NOTE | 2022-12-01 11:45 | MR_ITS ---
WS: [id number] MRI HEAD WITHOUT CONTRAST TECHNIQUE: Sagittal T1, T2 axial, T2 axial FLAIR, axial and coronal T1 images, axial susceptibility w eighted imaging, axial diffusion weighted images, and coronal T2 images were obtained. CLINICAL INFORMATION: R41.3 - Other amnesia COMPARISON: MRI 2012 FINDINGS: No evidence of residual diffusion to suggest acute ischemia. Ventricular system and basal cisterns ar e patent. No suspicious intracranial signal abnormalities. Normal zee-white differentiation. Normal posterior fossa. Normal vascular flow voids at the skull base. No extra-axial fluid collections. No e vidence of mass or mass effect. Paranasal sinuses are well aerated. Mastoid air cells are well aerated. Asymmetry of the lateral vent ricles is unchanged. Incidental slightly low-lying cerebellar tonsils. Normal 4th ventricle. No hemos iderin on susceptibly weighted images. Normal optic chiasm and pituitary infundibulum. Temporal lobes and hippocampal formations are normal in appearance. Normal cavernous sinuses and Meckel's cave. MR/MR head wo con* [id number] IMPRESSION: 1. No evidence of restricted diffusion to suggest acute ischemia. 2. No suspicious intracranial signal abnormalities. 3. Incidental asymmetry of the lateral ventricles unchanged. 4. No hemosiderin on susceptibly weighted images. 5. No other remarkable findings.
== END 2022-12-01 11:36 | disposition home or self-care (01) ==
PROVIDERS: PCP Registered Nurse; Visit Provider Specialist
DX: R41.3 Other amnesia (principal)
CPT/HCPCS: 70551

== ENCOUNTER 2023-04-20 20:00 | Outpatient (CLI) | payer OTHER, SELFPAY | END 2023-04-20 20:01 | disposition home or self-care (01) | LOC: SLEEP 04-21 05:44 | PROVIDERS: PCP Registered Nurse; Visit Provider Specialist | DX: G47.33 Obstructive sleep apnea (adult) (pediatric) (principal) | CPT/HCPCS: 95810 ==

== ENCOUNTER → 2023-05-05 13:08 | Outpatient (BNVA) | payer OTHER, SELFPAY | PROVIDERS: PCP Registered Nurse; Visit Provider Specialist | DX: G47.33 Obstructive sleep apnea (adult) (pediatric) (principal); G31.84 Mild cognitive impairment of uncertain or unknown etiology; E66.01 Morbid (severe) obesity due to excess calories; Z68.43 Body mass index [BMI] 50.0-59.9, adult; E11.9 Type 2 diabetes mellitus without complications; Z79.85 Long-term (current) use of injectable non-insulin antidiabetic drugs | CPT/HCPCS: 99214 ==

== ENCOUNTER 2023-10-23 11:38 | Emergency (ER) | payer OTHER, SELFPAY ==
[2023-10-23 12:03] VITALS: BP 189/106; PULSE 92; RESP 18; TEMP 36.6; O2SAT 96
--- NOTE | 2023-10-23 13:20 | XRR_ITS ---
PROCEDURE INFORMATION: Exam: XR Left Ankle Exam date and time: 10/23/2023 2:01 PM Age: 53 years old Clinical indication: Pain; Ankle; Left; Additional info: Trauma/pain TECHNIQUE: Imaging protocol: Radiologic exam of the left ankle. Views: 3 or more views. COMPARISON: CR XR foot LT min 3V* [id number] 10/23/2023 2:01 PM FINDINGS: Bones/joints: No acute fracture or dislocation. Minimal osteoarthritic changes. Soft tissues: Calcifications/ossifications at the level of the attachment of Achilles tendon noted. XR/XR ankle LT min 3V* [id number] IMPRESSION: No acute findings.
--- NOTE | 2023-10-23 13:20 | XRR_ITS ---
PROCEDURE INFORMATION: Exam: XR Left Foot Exam date and time: 10/23/2023 2:01 PM Age: 53 years old Clinical indication: Injury or trauma; Fall; Swelling (edema); Ankle and foot; Left; Additional info: Pain/trauma TECHNIQUE: Imaging protocol: Radiologic exam of the left foot. Views: 3 or more views. COMPARISON: CR XR foot LT min 3V* [id number] 08/07/2022 8:18 AM FINDINGS: Bones/joints: Minimal osteoarthritic changes 1st metatarsophalangeal articulation. Bone mineralization is normal. Soft tissues: Normal. XR/XR foot LT min 3V* [id number] IMPRESSION: No acute findings.
--- NOTE | 2023-10-23 13:21 | ED_ITS ---
HPI - Extremity Problem General: Chief complaint: Extremity Injury, Lower Stated complaint: left foot pain Time Seen by Provider: 10/23/23 13:01 History of Present Illness: 53-year-old male presents to the emergen cy department via POV. He states that he was playing basketball l yesterday and twisted on his left foot and felt a pop and had immediate pain to the lateral aspect of his left foot. He did rest for few minutes and then continued to play in the game. He states that o vernight the pain became worse he states it is a throbbing aching pain that is a constant pain and he states it is a 5 out of 10 when resting or sitting he states when he attempts to put any pressure on it the pain becomes a 10 out of 10 and unbearable. He states that he can only put pressure on the heel of his foot but any attempt to put pressure or weight on the ball of his foot makes him have excruciating pain. He denies numbness or tingling to the extremity. He states he has broken his right foot in the past. Review of Systems General: Reports: 10 or more systems reviewed and unremarkable except in HPI and below Musc: Reports: extremity pain, extremity swelling and joint pain PFSH ED PFSH: Medical History (Updated 10/23/23 @ 13:47 by Klever Cedeno MD) Difficult airway for intubation Memory loss or impairment Rotator cuff impingement syndrome of right shoulder COVID-19 Wound of right leg ADHD (attention deficit hyperactivity disorder), inattentive type Obstructive sleep apnea H/O concussion Traumatic brain injury Major depressive disorder, recurrent severe without psychotic features Surgical History History of ankle surgery S/P tonsillectomy Status post colonoscopy (11/12/21) normal , repeat in 10 years Social History Smoking and tobacco/nicotine status: former use of tobacco/nicotine (15 years ago ) Alcohol intake: never Substance/Drug Use: never Adopted: No Caregiver/support person: No Lives independently: No Household members: spouse and children Current occupational status: employed Sexually active: Yes Do you think of yourself as: Straight/Heterosexual Current gender identity: Male Physical Exam Narrative: EXAM NARRATIVE: Constitutional: the patient appears well nourished and with normal development. Vital signs reviewed as documented. HENMT: Normocephalic, atraumatic. External ears normal appearance without drainage. Nose without drainage, normal appearance. Mucus membranes moist. Neck is supple, No jugular venous distension, trachea is midline, no appreciable carotid bruits. No lymphadenopathy. No meningeal signs. Flexion, extension and lateral rotation is without pain. Eyes: Pupils are equal, round, reactive to light and accommodation. No scleral icterus. Extra-ocular movement are intact. Thorax is symmetrical and with equal rise and fall with respirations. Resp: Lungs are clear to auscultation. No wheezes, rales, crackles or ronchi at present. Cardio: Regular rate and rhythm. Positive S1, S2. No appreciable murmurs, rubs or gallops. GI: Abdominal exam reveals normal bowel sounds to all quadrants. No organomegaly. No obvious palpable masses noted. No hepatomegally appreciated. Soft, non-tender to palpation. Extremity: Extremities are non-edematous and both femoral and pedal pulses are 2+ and equal bilaterally. Moves all extremities well, sensation in all extremities. Patient does have tenderness to palpation to the left fifth metatarsal area. He is also tender to palpation to the left lateral malleolus. Neuro: Alert and oriented x4, person, place, time and situation. Cranial nerves II through XII are grossly intact, there is no focal neurological deficits that I can appreciate at present. Motor strength in the upper and lower extremities are equal and bilateral 5/5. Psych: Cooperative, calm, normal thought process, appropriate judgment. Skin: No lesions, rashes. No gross abnormalities noted. Back: Symmetrical, no obvious deformity, No CVA tenderness Course ED course: I reviewed the radiographic examination and determined the need for stabilization and pain control via splint. A left posterior leg splint was utilized. The splint was ordered and placed by the nursing staff, under the direct supervision of myself (ER Physician. The patient's neurovascular status was evaluated and was intact before and after the application of the splint. Capillary refill was less than 3 seconds before and after the application. The patient was splinted and the most appropriate anatomical and functional position at that time. Anticipatory guidance, return precautions and red flag precautions were provided to the patient and support person. The patient/support person was advised to contact the patient's primary care provider or Orthopedic provider to make a follow-up appointment for additional evaluation and treatment within the next 3-5 days. Reevaluation(s): Reevaluation #1: Reevaluation of the patient after receiving Toradol pain medication he states improved control of his pain. I discussed anticipatory guidance regarding the splint as well as orthopedic/primary care follow-up the patient will utilize his own crutches as he brought those crutches to the emergency department. Time: 14:59 Vital Signs: Vital signs: Vital Signs Temperature 97.9 F 10/23/23 15:27 Pulse Rate 92 10/23/23 15:27 Respiratory Rate 18 10/23/23 15:27 Blood Pressure 189/106 10/23/23 15:27 Pulse Oximetry 96 10/23/23 15:27 Oxygen Delivery Me thod Room Air 10/23/23 12:03 MDM - Extremity (Nontraumatic) Medical Decision Making 53-year-old male with complaints of left foot and ankle pain initially experienced from physical exercise. Patient states he is unable to bear significant weight and I will provide him radiographic examination and pain medication and I will recommend he follow-up with orthopedics or his primary care provider. Medical Records I reviewed the patient's medical records. Lab Data Radiology Impressions Ankle X-Ray 10/23/23 13:20 IMPRESSION: No acute findings. Foot X-Ray 10/23/23 13:20 IMPRESSION: No acute findings. All radiology interpretation(s) finalized by discharge Discharge Plan Discharge Patient Disposition: Home Clinical Impression: Acute left ankle pain, Acute pain of left foot, Sprain of foot, left Condition: Stable Prescriptions: New hydrocodone-acetaminophen 10-325 mg tablet 1 tab PO Q6H PRN (Reason: pain) Qty: 14 0RF No Action (DME) blood-glucose meter [Accu-Chek Guide Glucose Meter] Misc See Rx Instructions .Route Qty: 1 0RF Rx Instructions: As directed (DME) Blood Glucose Test Strip See Rx Instructions .Route Qty: 50 2RF Rx Instructions: two times daily (DME) lancets [Accu-Chek Softclix Lancets] Misc See Rx Instructions .Route Qty: 100 0RF Rx Instructions: two times daily methylphenidate HCl 20 mg tablet 20 mg PO BID 30 Days Qty: 60 0RF Rx Instructions: Morning and noon. Do not refill until 08/02/23 (DME) CPAP machine & Supplies See Rx Instructions .Route .MEDSUPPLY Qty: 1 0RF Rx Instructions: As directed amlodipine 5 mg tablet 5 mg PO DAILY Qty: 90 1RF sertraline [Zoloft] 100 mg tablet 100 mg PO .morning Qty: 90 2RF aspirin [Adult Low Dose Aspirin] 81 mg tablet,delayed release (DR/EC) 81 mg PO DAILY Qty: 90 0RF atorvastatin 10 mg tablet 10 mg PO DAILY Qty: 90 3RF Trulicity 0.75 mg/0.5 mL pen injector 0.75 mg SUBCUT .WEEKLY Qty: 2 0RF losartan 100 mg tablet 100 mg PO DAILY Qty: 90 0RF hydrochlorothiazide 25 mg tablet 25 mg PO DAILY Discharge Orders: Discharge ED (Routine); Ordered 10/23/23 Ordered By: Klever Cedeno Referrals: Sukhwinder Lane DO [Physician] - Danilo Mead FNP [Primary Care Provider] - Discharge Diet: Advance as tolerated Discharge Activity: Use walker/crutches as instructed Patient Instructions: Opioid Safety, Pain Management Activity Restrictions/Additional Instructions: Activity Restrictions/Additional Instructions: Thank you for choosing [facility] for your healthcare needs today. Please realize that you were seen in the Emergency Department and that we are pr oviding you with an emergency medical screening exam and this may not be a complete and all inclusive of all the testing and or medical work-up that you may need to determine your ailment or severity of your illness. It is very important that you follow-up as instructed with your Primary care provider or Specialist for additional evaluation and to discuss your medical treatment plan. You may return to the Emergency Department should you have concerns or if your condition changes or worsens in any way. Coding Level of Care Code ED [employer] Executive Director for Erick Coe
[2023-10-23] MEDS: ketorolac 60 mg/2 mL INJ IM (13:46)
[2023-10-23 15:27] VITALS: BP 189/106; PULSE 92; RESP 18; TEMP 36.6; O2SAT 96
== END 2023-10-23 15:28 | disposition home or self-care (01) ==
PROVIDERS: Emergency Provider Internal Medicine; PCP Registered Nurse
DX: S93.602A Unspecified sprain of left foot, initial encounter (principal); Z79.82 Long term (current) use of aspirin; Z79.85 Long-term (current) use of injectable non-insulin antidiabetic drugs; Z87.891 Personal history of nicotine dependence; X50.1XXA Overexertion from prolonged static or awkward postures, initial encounter; Y93.67 Activity, basketball
CPT/HCPCS: 29515; 73610; 73630; 96372; 99284; J1885

== ENCOUNTER → 2024-01-24 15:38 | Outpatient (BNVA) | payer OTHER, SELFPAY | PROVIDERS: PCP Registered Nurse; Visit Provider Specialist | DX: R29.90 Unspecified symptoms and signs involving the nervous system (principal); G31.84 Mild cognitive impairment of uncertain or unknown etiology; F90.0 Attention-deficit hyperactivity disorder, predominantly inattentive type; G47.33 Obstructive sleep apnea (adult) (pediatric) | CPT/HCPCS: 99214 ==

== ENCOUNTER 2024-07-24 09:14 | Emergency (ER) | payer OTHER, SELFPAY ==
--- NOTE | 2024-07-24 09:16 | XR_ITS ---
WS: [id number] Exam: XR knee RT 3V* [id number] Date/Time of Exam: 07/24/2024 9:31 AM Reason For Exam: injury No acute fracture or dislocation. 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 No joint effusion. Normal so ft tissues. XR/XR knee RT 3V* [id number] IMPRESSION: 1. Degenerative changes-no acute fracture.
[2024-07-24 09:36] VITALS: BP 177/80; PULSE 70; RESP 20; TEMP 36.8; O2SAT 97; BMI 51.5
--- NOTE | 2024-07-24 09:47 | W.ED.EXTPRO ---
HPI - Extremity Problem General: Chief complaint: Extremity Problem,Nontraumatic Stated complaint: RT knee inj Time Seen by Provider: 07/24/24 09:17 History of Present Illness: 53-year-old male presents emergency room planing of lateral right knee pain. Is been going on for the last 6 days. The only precipitating event he can recall as he missed the step about this started but he never had sharp pain from pain developed over the next couple days after that has been persistent. No previous surgery to the knee. Associated symptoms: Deny chest pain, fever(s) or rash Related Data Home Medications Medication Instructions Recorded Confirmed hydrochlorothiazide 25 mg tablet 25 mg PO DAILY 10/23/23 06/20/24 Previous Rx's Medication Instructions Recorded CPAP machine & Supplies #1 ea 06/02/22 aspirin 81 mg tablet,delayed 81 mg PO DAILY #90 tabs 10/07/22 release (Adult Low Dose Aspirin) blood sugar diagnostic (Blood #50 ea 12/08/22 Glucose Test strips) blood-glucose meter (Accu-Chek #1 ea 12/08/22 Guide Glucose Meter) lancets (Accu-Chek Softclix #100 ea 12/08/22 Lancets) losartan 100 mg tablet 100 mg PO DAILY #90 tabs 09/28/23 hydrocodone 10 mg-acetaminophen 1 tab PO Q6H PRN pain #14 tabs 10/23/23 325 mg tablet atorvastatin 10 mg tablet 10 mg PO DAILY #90 tabs 12/13/23 sertraline 100 mg tablet (Zoloft) 100 mg PO .morning #90 tabs 01/21/24 methylphenidate HCl 20 mg tablet 20 mg PO BID 1 month #60 tabs 01/24/24 methylphenidate HCl 20 mg tablet 20 mg PO BID 1 month #60 tabs 01/24/24 methylphenidate HCl 20 mg tablet 20 mg PO BID 30 days #60 tabs 01/24/24 amlodipine 5 mg tablet 5 mg PO DAILY #60 tabs 07/12/24 diclofenac sodium 75 mg 75 mg PO Q12H PRN pain #20 tabs 07/24/24 tablet,delayed release Allergies Allergy/AdvReac Type Severity Reaction Status Date / Time lisinopril Allergy cough Verified 07/24/24 09:44 Review of Systems Const: Denies: fever(s) or chills Card: Denies: chest pain Resp: Denies: dyspnea GI: Denies: abdominal pain : Denies: dysuria, urinary frequency or urinary urgency Musc: Reports: joint pain and joint swelling; Denies: neck pain or back pain Skin/Breast: Denies: rash PFSH ED PFSH: Medical History Difficult airway for intubation Memory loss or impairment Rotator cuff impingement syndrome of right shoulder COVID-19 Wound of right leg ADHD (attention deficit hyperactivity disorder), inattentive type managed by neurology Obstructive sleep apnea H/O concussion Traumatic brain injury Major depressive disorder, recurrent severe without psychotic features Surgical History History of ankle surgery S/P tonsillectomy Status post colonoscopy (11/12/21) normal , repeat in 10 years Social History Smoking and tobacco/nicotine status: former use of tobacco/nicotine Alcohol intake: never Substance/Drug Use: never Adopted: No Caregiver/support person: No Lives independently: No Household members: spouse and children Current occupational status: employed Sexually active: Yes Do you think of yourself as: Straight/Heterosexual Current gender identity: Male Physical Exam Const: GENERAL APPEARANCE: cooperative ORIENTATION/CONSCIOUSNESS: Yes awake, Yes oriented to person, Yes oriented to place and Yes oriented to time HENMT: COMMON NORMALS: normocephalic, atraumatic and hearing grossly normal bilaterally HEAD & SCALP: normocephalic and atraumatic Resp: COMMON NORMALS: normal respiratory effort, No retractions, No use of accessory muscles and clear to auscultation bilaterally AUSCULTATION: clear to auscultation bilaterally Cardio: COMMON NORMALS: regular rate, regular rhythm and No murmurs present (Cardio) RATE: regular rate RHYTHM: regular rhythm Extremity: COMMON NORMALS: normal to inspection, capillary refill normal, no clubbing, cyanosis or edema, no calf tenderness and no pedal edema OTHER: No deformity of the knee, no ligamentous instability there is a small joint effusion no significant pain with hyperflexion or of full extension. Neurovascularly lower extremities intact there is a chronic edema to the lower extremity which patient reports unchanged negative Homans. Neuro: SENSORIUM/ORIENTATION: Yes oriented to person, Yes oriented to place and Yes oriented to time Skin: COMMON NORMALS: no rashes or lesions noted GENERAL SKIN EXAM: no rashes or lesions noted Course Vital Signs: Vital signs: Vital Signs Temperature 98.2 F 07/24/24 09:36 Pulse Rate 70 07/24/24 10:41 Respiratory Rate 20 H 07/24/24 09:36 Blood Pressure 179/61 07/24/24 10:41 Pulse Oximetry 98 07/24/24 10:41 Oxygen Delivery Me thod Room Air 07/24/24 09:36 MDM - Extremity (Nontraumatic) Medical Decision Making Plain x-ray of the knee is negative. Will place patient in knee immobilizer set him up for follow-up with orthopedics use diclofenac as needed. Nonweightbearing patient given crutches. Lab Data Radiology Impressions Knee X-Ray 07/24/24 09:16 IMPRESSION: 1. Degenerative changes-no acute fracture. All radiology interpretation(s) finalized by discharge Discharge Plan Discharge Patient Disposition: Home Clinical Impression: Right knee sprain Condition: Stable Prescriptions: New diclofenac sodium 75 mg tablet,delayed release (DR/EC) 75 mg PO Q12H PRN (Reason: pain) Qty: 20 0RF No Action (DME) blood-glucose meter [Accu-Chek Guide Glucose Meter] Misc See Rx Instructions .Route Qty: 1 0RF Rx Instructions: As directed (DME) Blood Glucose Test Strip See Rx Instructions .Route Qty: 50 2RF Rx Instructions: two times daily (DME) lancets [Accu-Chek Softclix Lancets] Misc See Rx Instructions .Route Qty: 100 0RF Rx Instructions: two times daily methylphenidate HCl 20 mg tablet 20 mg PO BID 30 Days Qty: 60 0RF Rx Instructions: Do not fill until 03/22/2024 methylphenidate HCl 20 mg tablet 20 mg PO BID 30 Days Qty: 60 0RF Rx Instructions: Morning and noon. Do not refill until 02/20/24 methylphenidate HCl 20 mg tablet 20 mg PO BID 30 Days Qty: 60 0RF (DME) CPAP machine & Supplies See Rx Instructions .Route .MEDSUPPLY Qty: 1 0RF Rx Instructions: As directed aspirin [Adult Low Dose Aspirin] 81 mg tablet,delayed release (DR/EC) 81 mg PO DAILY Qty: 90 0RF losartan 100 mg tablet 100 mg PO DAILY Qty: 90 0RF atorvastatin 10 mg tablet 10 mg PO DAILY Qty: 90 0RF sertraline [Zoloft] 100 mg tablet 100 mg PO .morning Qty: 90 2RF amlodipine 5 mg tablet 5 mg PO DAILY Qty: 60 0RF Rx Instructions: PATIENT MUST MAKE APPOINTMENT AND BE SEEN FOR FURTHER REFILLS hydrocodone-acetaminophen 10-325 mg tablet 1 tab PO Q6H PRN (Reason: pain) Qty: 14 0RF hydrochlorothiazide 25 mg tablet 25 mg PO DAILY Discharge Orders: Discharge ED (Routine); Ordered 07/24/24 Ordered By: Addi Villafana Referrals: Danilo Mead FNP [Primary Care Provider] - Discharge Diet: Usual diet Discharge Activity: Limit activity as instructed Patient Instructions: Opioid Safety, Pain Management Activity Restrictions/Additional Instructions: Thank you for choosing [facility] for your healthcare needs today. It is very important that you follow up as instructed or that you return to the Emergency Department should you have concerns or if your condition changes or worsens in any way. You were seen in the emergency room with complaint of right knee pain. X-ray showed chronic degenerative changes, there is a small joint effusion noted on exam. Recommend the wear knee immobilizer and do not bear any weight on your right leg. Use crutches to ambulate. Will make arrangements for you to follow-up with orthopedic. Coding Level of Care Code ED Feed Research Aide for Erick Coe
[2024-07-24 10:41] VITALS: BP 179/61; PULSE 70; O2SAT 98
--- NOTE | 2024-07-26 09:37 | DCPLANNER ---
Message sent to Ortho for follow up Right knee strain/pain
== END 2024-07-24 10:48 | disposition home or self-care (01) ==
PROVIDERS: Emergency Provider Family Medicine; PCP Registered Nurse
DX: S83.91XA Sprain of unspecified site of right knee, initial encounter (principal); X58.XXXA Exposure to other specified factors, initial encounter; Z79.82 Long term (current) use of aspirin; Z87.891 Personal history of nicotine dependence
CPT/HCPCS: 29530; 73562; 99283; E0114

== ENCOUNTER → 2024-08-14 11:04 | Outpatient (BNVA) | payer OTHER, SELFPAY | PROVIDERS: PCP Registered Nurse; Visit Provider Specialist | DX: M17.11 Unilateral primary osteoarthritis, right knee | CPT/HCPCS: 73560; 73565 ==

== ENCOUNTER → 2024-10-02 15:21 | Outpatient (BNVA) | payer OTHER, SELFPAY | PROVIDERS: PCP Registered Nurse; Visit Provider Registered Nurse | DX: Z90.3 Acquired absence of stomach [part of] | CPT/HCPCS: 82310; 82607; 82746; 83735; 85025 ==

== ENCOUNTER → 2025-05-09 15:01 | Outpatient (BNVA) | payer OTHER, SELFPAY | PROVIDERS: PCP Registered Nurse; Visit Provider Nurse Practitioner | DX: M25.539 Pain in unspecified wrist (principal) | CPT/HCPCS: 73110 ==

== ENCOUNTER → 2025-05-14 08:28 | Outpatient (BNVA) | payer OTHER, SELFPAY | PROVIDERS: PCP Registered Nurse; Visit Provider Nurse Practitioner | DX: M65.4 Radial styloid tenosynovitis [de Quervain] (principal); M25.832 Other specified joint disorders, left wrist | CPT/HCPCS: 73110 ==

== ENCOUNTER 2025-05-14 10:32 | Outpatient (CLI) | payer OTHER, SELFPAY | END 2025-05-14 10:33 | disposition home or self-care (01) | LOC: SPT 10:33 | PROVIDERS: PCP Registered Nurse; Visit Provider Nurse Practitioner | DX: Z46.89 Encounter for fitting and adjustment of other specified devices (principal); S69.92XD Unspecified injury of left wrist, hand and finger(s), subsequent encounter; X58.XXXD Exposure to other specified factors, subsequent encounter | CPT/HCPCS: L3809 ==

== ENCOUNTER 2025-05-21 07:49 | Outpatient (CLI) | payer OTHER, SELFPAY ==
--- NOTE | 2025-05-21 07:45 | US_ITS ---
WS: [id number] Ultrasound soft tissue INDICATION: LEFT wrist injury TECHNIQUE: Ultrasound soft tissue area of concern FINDINGS: Ultrasound soft tissue area of concern LEFT wrist near the thumb. In the area of concern, there is a cystic lesion measuring 1.4 x 1.6 x 1.0 cm and most likely representing a ganglion cyst. No other suspicious findings. US/US soft tissue/extremity [id number] IMPRESSION: See above
== END 2025-05-21 07:50 | disposition home or self-care (01) ==
LOC: RAD 07:50
PROVIDERS: PCP Registered Nurse; Visit Provider Nurse Practitioner
DX: M25.532 Pain in left wrist (principal); M79.89 Other specified soft tissue disorders
CPT/HCPCS: 76882